=== PATIENT | male | born 1950 | race Caucasian/White ===

== ENCOUNTER → 2019-10-17 10:01 | Outpatient (BNVA) | payer MEDICARE, MEDICAID, SELFPAY | PROVIDERS: Family Provider Internal Medicine; PCP Internal Medicine; Visit Provider Psychiatry & Neurology Neurology | DX: G25.0 Essential tremor (principal) | CPT/HCPCS: 99213 ==

== ENCOUNTER 2021-10-20 14:42 | Outpatient (CLI) | payer MEDICARE, MEDICAID, SELFPAY ==
--- NOTE | 2021-10-20 14:54 | USCV_ITS ---
William Oneil Age: 71 Gender: M : 1950 Exam Date: 10/20/2021 15:58 Ordering Phys: Nataly Riggs MD Technologist: CKDonna Exam Location: [facility] [place] Indication: CAROTID BRUIT Risk Factors: Previous Vascular Surgery: Right Brachial BP: / Left Brachial BP: / Right Left Velocity (cm/s) Spectral Plaque Velocity (cm/s) Spectral Plaque Syst/Diast Broadening Syst/Diast Broadening 95.90/ 11.00 Prox CCA 111.40/ 12.10 118.00/11.00 Mid CCA 89.30 / 13.20 122.40/9.90 Distal CCA 191.40/ 25.10 144.40/22.10 Prox ICA 200.50/ 36.50 130.10/24.30 Mid ICA 182.30/ 25.10 114.70/16.50 Distal ICA 180.00/ 31.90 131.20 ECA 232.40 1.18 ICA/CCA 1.05 Vertebral 63.90/ 7.70 cm/s 55.20/ 9.20 cm/s Subclavian 205.1 203.1 0 0 CONCLUSIONS Right ICA stenosis 50-69% at the lower end of the range. Mild atheromatous plaque right carotid bulb/ICA. Left ICA stenosis 50-69% at the upper end of the range. Moderate calcified atheromatous plaque left carotid bulb/ICA. Normal antegrade Doppler flow noted in the right vertebral artery. Normal antegrade Doppler flow noted in the left vertebral artery. Henry Acuña MD (Electronically Signed) Final Date: 21 October 2021 08:47 S
== END 2021-10-20 14:43 | disposition home or self-care (01) ==
PROVIDERS: PCP Internal Medicine; Visit Provider Internal Medicine
DX: R09.89 Other specified symptoms and signs involving the circulatory and respiratory systems (principal); I65.23 Occlusion and stenosis of bilateral carotid arteries
CPT/HCPCS: 93880

== ENCOUNTER 2022-01-02 14:17 | Outpatient (CLI) | payer MEDICARE, MEDICAID, SELFPAY ==
--- NOTE | 2022-01-02 14:34 | USCV_ITS ---
William Oneil Age: 71 Gender: M : 1950 Exam Date: 01/02/2022 15:16 Ordering Phys: Nataly Riggs MD Technologist: Wilson Cuellar Exam Location: [facility] – [place] Indication: Aortic Stenosis BP: 130 / 76 HR: 77 Rhythm: Sinus Technical Quality: Adequate MEASUREMENTS (Male / Female) Normal Values 2D ECHO LV Diastolic Diameter PLAX 3.4 cm 4.2 - 5.9 / 3.9 - 5.3 cm LV Systolic Diameter PLAX 2.4 cm IVS Diastolic Thickness 0.9 cm 0.6 - 1.0 / 0.6 - 0.9 cm IVS Systolic Thickness 1.0 cm LVPW Diastolic Thickness 0.9 cm 0.6 - 1.0 / 0.6 - 0.9 cm LVPW Systolic Thickness 1.0 cm LVOT Diameter 2.0 cm LV Ejection Fraction 2D Teich 59.4 % LV Ejection Fraction MOD 2C 61.9 % LV Ejection Fraction 2C AL 62.5 % LA Diameter 3.7 cm Aorta at Sinotubular Diameter 2.0 cm M-MODE LV Diastolic Diameter MM 3.3 cm 4.2 - 5.9 / 3.9 - 5.3 cm LV Systolic Diameter MM 2.2 cm LV Ejection Fraction MM Teich 64.1 % IVS Diastolic Thickness MM 1.0 cm 0.6 - 1.0 / 0.6 - 0.9 cm IVS Systolic Thickness MM 1.4 cm LVPW Diastolic Thickness MM 1.1 cm 0.6 - 1.0 / 0.6 - 0.9 cm LVPW Systolic Thickness MM 1.6 cm RV Diastolic Diameter MM 1.3 cm Aortic Annulus Diameter 2.9 cm LA Ao Ratio MM 1.5 MV E Point Septal Separation 1.3 cm DOPPLER AV Peak Velocity 438.7 cm/s LVOT Peak Velocity 111.0 cm/s AV Area Cont Eq vti 0.8 cm squared AV Area Cont Eq pk 0.8 cm squared MV Area PHT 5.0 cm squared Mitral E to A Ratio 1.2 MV E' Velocity 59.0 cm/s Mitral E to MV E' Ratio 14.2 Mitral E to LV E' Lateral Ratio 12.6 Mitral E to LV E' Septal Ratio 16.3 TR Peak Velocity 261.7 cm/s TR Peak Gradient 27.4 mmHg TV Peak E Velocity 131.0 cm/s Right Atrial Pressure 3.0 mmHg Pulmonary Artery Systolic Pressu 30.4 mmHg PV Peak Velocity 109.0 cm/s FINDINGS Left Ventricle Normal left ventricular size and systolic function, EF 58 %. No regional wall motion abnormalities. Grade II/IV diastolic dysfunction, moderately elevated filling pressures. Right Ventricle The right ventricle is normal in size and function. Right Atrium The right atrium is normal in size. Left Atrium Mildly increased left atrial size. Mitral Valve Structurally normal mitral valve without significant stenosis or prolapse. There is no mitral regurgitation. Aortic Valve Moderate aortic valve calcification. Severe aortic valve stenosis, mean gradient 36 mmHg, ROJAS 0.75 cm squared. Peak velocity of 4.3 m/s with a peak gradient of 74 mmHg.trace to mild aortic valve regurgitation. Tricuspid Valve Trace tricuspid valve regurgitation. Estimated pulmonary artery peak systolic pressure of 30 mmHg Pulmonic Valve Structurally normal pulmonic valve without significant stenosis. There is no pulmonic regurgitation. Pericardium No pericardial effusion. Aorta Normal ascending aorta dimension. CONCLUSIONS Normal left ventricular size and systolic function, EF 58 %. No regional wall motion abnormalities. Grade II/IV diastolic dysfunction, moderately elevated filling pressures. Mildly increased left atrial size. Severe aortic valve stenosis, mean gradient 36 mmHg, ROJAS 0.75 cm squared. Peak velocity of 4.3 m/s with a peak gradient of 74 mmHg. Trace tricuspid valve regurgitation. Normal pulmonary artery peak systolic pressure of 30 mmHg. Trace to mild aortic valve regurgitation. Compared to the study from 04/27/2018, there is worsening of the aortic valve stenosis Dr Alie Rodriguez MD [facility] (Electronically Signed) Final Date: 03 January 2022 14:34 S
== END 2022-01-02 14:18 | disposition home or self-care (01) ==
PROVIDERS: PCP Internal Medicine; Visit Provider Internal Medicine
DX: I35.0 Nonrheumatic aortic (valve) stenosis (principal); I07.1 Rheumatic tricuspid insufficiency
CPT/HCPCS: 93306

== ENCOUNTER 2022-06-08 03:10 | Emergency (ER) | payer MEDICARE, MEDICAID, SELFPAY ==
[2022-06-08 03:19] VITALS: BP 126/74; PULSE 101; RESP 20; TEMP 37.2; O2SAT 98; BMI 23.6
--- NOTE | 2022-06-08 03:27 | CTR_ITS ---
PROCEDURE INFORMATION: Exam: CT Head Without Contrast Exam date and time: 06/08/2022 3:57 AM Age: 72 years old Clinical indication: Injury or trauma; Fall; Blunt trauma (contusions or hematomas); Additional info: Fall head injury TECHNIQUE: Imaging protocol: Computed tomography of the head without contrast. Radiation optimization: All CT scans at this facility use at least one of these dose optimization techniques: automated exposure control; mA and/or kV adjustment per patient size (includes targeted exams where dose is matched to clinical indication); or iterative reconstruction. COMPARISON: MR head wo con* [id number] 08/28/2015 5:06 PM RADIATION DOSE METRICS: Total DLP (mGy-cm): 1145.19 FINDINGS: Brain: Mild to moderate severity diffuse cerebral cortical volume loss. No hemorrhage. Unremarkable white matter. No mass effect. Cerebral ventricles: No ventriculomegaly. Paranasal sinuses: Visualized sinuses are unremarkable. No fluid levels. Mastoid air cells: Visualized mastoid air cells are well aerated. Bones/joints: Angulated right nasal bone deformity of unknown chronicity. Soft tissues: Right frontal scalp soft tissue injury. CT/CT head wo con* [id number] IMPRESSION: Negative for acute intracranial injury.
[2022-06-08 04:00] VITALS: BP 142/73; PULSE 110; RESP 18; O2SAT 100
[2022-06-08 05:01] VITALS: BP 142/73; PULSE 110; RESP 18; O2SAT 100
--- NOTE | 2022-06-08 05:15 | ED_ITS ---
HPI - Fall General: Chief Complaint: Fall Stated Complaint: Head Injury Time Seen by Provider: 06/08/22 03:23 Source: patient and EMS History of Present Illness: 72-year-old gentleman who fell in the senior living this morning. He struck his head. He remembers the fall he was not knocked unconscious. He is not anticoagulated. complaint: fall Onset (ago): minute(s) Fall from: standing Fall witnessed: yes, by living facility staff Place fall occurred: senior living/SNF Loss of consciousness: None Prolonged down time: no Symptoms prior to fall: none Context: tripped/slipped Location of injury: head Associated symptoms-after fall: Reports headache(s) (Mild); Denies abdominal pain, chest pain, confusion (Mental status is baseline) or short of breath Review of Systems Const: Denies: fever(s) Eyes: Denies: change in vision Card: Denies: chest pain Resp: Denies: dyspnea GI: Denies: abdominal pain Neuro: Reports: headache(s) (Mild); Denies: confusion (Mental status is baseline) PFSH ED PFSH: Family History Denies family history of Bleeding disorder Social History Smoking and tobacco status: never smoked Physical Exam Const: COMMON NORMALS: no acute distress GENERAL APPEARANCE: cooperative, comfortable and frail appearing; not ill appearing NUTRITIONAL APPEARANCE: thin HENMT: COMMON NORMALS: normocephalic and Normal external nose present HEAD & SCALP: normocephalic, contusion (Forehead) and laceration (Forehead) FACE & SINUS: face symmetric NOSE: Normal external nose present Eye: COMMON NORMALS: Equal, round and reactive pupils present and EOMs intact bilaterally PUPIL: Yes Equal, round and reactive pupils present Neck/C-Spine: GENERAL: Yes trachea midline Chest: CHEST: Yes Symmetrical chest wall rise Resp: COMMON NORMALS: normal respiratory effort, No use of accessory muscles and clear to auscultation bilaterally AUSCULTATION: clear to auscultation bilaterally Cardio: COMMON NORMALS: regular rhythm RATE: tachycardic (Mild) RHYTHM: regular rhythm GI: COMMON NORMALS: Normal to inspection, nondistended, normoactive bowel sounds present, Soft to palpation and non-tender PALPATION: Yes Soft to palpation Extremity: GENERAL: Yes edema (1+) Neuro: CHAN COMA SCALE: document GCS findings Chan coma scale eye opening: Spontaneous Walnut coma scale verbal response: Confused (Minimal) Walnut coma scale motor response: Obey commands Walnut coma scale total score: 14 Psych: COMMON NORMALS: cooperative Procedures Laceration Laceration 1: Site: face Side (If applicable): right Size (cm): 5 Description: irregular Depth: simple, single layer Local Anesthetic: lidocaine 1% and with epi Amount of anesthesia used (mL): 6 Pre-repair: wound explored, irrigated extensively and deep structures intact Skin layer closed with: nylon Size (cm): 5-0 Number of sutures: 8 Technique: simple, interrupted Course Vital Signs: Vital signs: Vital Signs Temperature 98.9 F 06/08/22 03:19 Pulse Rate 110 H 06/08/22 05:01 Respiratory Rate 18 06/08/22 05:01 Blood Pressure 142/73 06/08/22 05:01 Pulse Oximetry 100 06/08/22 05:01 Oxygen Delivery Me thod 06/08/22 04:00 MDM - Fall Medical Decision Making Laceration is repaired. Head CT is negative. He appears to be at baseline mental status. He will go back to the senior living. Lab Data Radiology Impressions Head CT 06/08/22 03:27 IMPRESSION: Negative for acute intracranial injury. Discharge Plan Discharge Patient Disposition: Home Clinical Impression: Laceration of forehead, Contusion of face, scalp and neck Condition: Stable Prescriptions: No Action aspirin 81 mg tablet,delayed release (DR/EC) 81 mg PO QDAY docusate sodium [Colace] 100 mg capsule 100 mg PO QDAY duloxetine [Cymbalta] 30 mg capsule,delayed release(DR/EC) 30 mg PO QDAY hydrochlorothiazide 25 mg tablet 25 mg PO QDAY levothyroxine 75 mcg capsule 75 mcg PO QDAY lovastatin 20 mg tablet 20 mg PO QDAY primidone [Mysoline] 50 mg tablet 50 mg PO TID Proair Digihaler 90 mcg/actuation aero powdr breath act w/sensor 1 inh INHALATION .COMPLEX Rx Instructions: 1 inh inhalation 2 puffs four times daily as needed ; primidone 50 mg tablet See Rx Instructions .ROUTE .COMPLEX Qty: 90 0RF Dose Instruction: TAKE 1 TABLET BY MOUTH THREE TIMES DAILY Rx Instructions: TAKE 1 TABLET BY MOUTH THREE TIMES DAILY Discharge Orders: Discharge ED (Routine); Ordered 06/08/22 Ordered By: Martin Fallon Referrals: Nataly Riggs MD [Primary Care Provider] - 4-7 days Discharge Diet: Advance as tolerated Discharge Activity: Resume usual activity Patient Instructions: Scalp Contusion in Adults (ED), Facial Laceration (ED) Activity Restrictions/Additional Instructions: Sutures out in 7 days. Return for any problems. Coding Level of Care Code ED Inspector [employer] for Jimy [place]
[2022-06-08] MEDS: acetaminophen 325 mg Tablet 650 MG PO (09:54)
[2022-06-08 10:49] VITALS: BP 142/73; PULSE 110; RESP 18; O2SAT 100
== END 2022-06-08 10:50 | disposition home or self-care (01) ==
PROVIDERS: Emergency Provider Emergency Medicine; PCP Internal Medicine
DX: S01.81XA Laceration without foreign body of other part of head, initial encounter (principal); S00.03XA Contusion of scalp, initial encounter; S10.93XA Contusion of unspecified part of neck, initial encounter; W19.XXXA Unspecified fall, initial encounter; Y92.129 Unspecified place in nursing home as the place of occurrence of the external cause
CPT/HCPCS: 12013; 70450; 99284